=== PATIENT | female | born 2000 | race Hispanic/Latino ===

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

== ENCOUNTER 2020-03-25 09:19 | Emergency (ER) | payer SELFPAY ==
[2020-03-25 10:15] LABS: Bilirubin Negative (Negative); Blood, Urine Negative (Negative); Glucose, Urine (Dipstick) Negative (Negative); Ketone, Urine Negative (Negative); Leukocyte Negative (Negative); Nitrite Negative (Negative); Protein, Urine (Dipstick) Negative (Neg-Trace); Urobilinogen 0.2 mg/dL (Less than 2)
[2020-03-25 10:16] LABS: Clarity Clear (Clear)
[2020-03-25 10:17] LABS: Specific Gravity, Urine 1.004 (1.005-1.030)
[2020-03-25 10:19] LABS: Pregnancy Test - Urine (BHCG) Negative (Negative); Pregu Control Background? CLEAR/WHITE (CLR/WHITE); Pregu Control Bar Appear? YES (CONTROL BAR); Specific Gravity 1.004 (1.002-1.036)
[2020-03-25 10:21] LABS: RBC/HPF None Seen HPF (0-3); WBC/HPF None Seen HPF (0-3)
== END 2020-03-25 11:01 | disposition home or self-care (01) ==
LOC: ERS 09:19
DX: R55 Syncope and collapse (principal); M41.9 Scoliosis, unspecified; F31.9 Bipolar disorder, unspecified; F41.9 Anxiety disorder, unspecified
CPT/HCPCS: 36415; 36416; 81003; 81025; 84443; 87086; 99283

== ENCOUNTER 2021-05-14 21:13 | Emergency (ER) | payer OTHER, SELFPAY ==
[2021-05-14] MEDS ORDERED: Ibuprofen 200 MG TAB ONE (21:46)
[2021-05-14] MEDS ORDERED: Acetaminophen 500 MG TAB ONE (22:42)
[2021-05-14 23:27] LABS: SARS-CoV-2 NAA Rapid Test DETECTED (NotDetected)
== END 2021-05-15 01:39 | disposition home or self-care (01) ==
LOC: ERS 21:13
DX: U07.1 COVID-19 (principal)
CPT/HCPCS: 0240U; 71045

== ENCOUNTER 2024-04-24 23:44 | Emergency (ER) | payer BC, OTHER, SELFPAY ==
[2024-04-25] MEDS ORDERED: Ketorolac Tromethamine 30 MG (1 mL) VIAL ONE (00:06)
== END 2024-04-25 00:35 | disposition home or self-care (01) ==
LOC: ERS 23:44
DX: S93.401A Sprain of unspecified ligament of right ankle, initial encounter (principal); X50.1XXA Overexertion from prolonged static or awkward postures, initial encounter; Y93.01 Activity, walking, marching and hiking; Y92.009 Unspecified place in unspecified non-institutional (private) residence as the place of occurrence of the external cause
CPT/HCPCS: 96372; 99283; J1885